=== PATIENT | male | born 1985 | race Caucasian/White ===

== ENCOUNTER 2017-12-31 12:19 | Emergency (ER) | payer OTHER ==
--- NOTE | 2017-12-31 13:24 | EDM.PDOC ---
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 He reports he felt a pop and has since had pain 8-9/10 to his low back. He tried use of ibuprofen, ice without help. He reports history of gout. Lower Back Pain Score (Numeric/FACES): 4 - Related Data Allergies Allergy/AdvReac Type Severity Reaction Status Date / Time No Known Allergies Allergy Verified 12/31/17 12:48 Home Meds: Home Meds Ibuprofen [Motrin] 600 mg PO 12/31/17 [History] Past Medical History Respiratory History: Reports: Asthma Musculoskeletal History: Reports: Gout, Other (See Below) Other Musculoskeletal History: Yesterday move wrong and has had pain since has tried ice and motrin states hard time moving Social & Family History - Tobacco Use Years of Tobacco use: 10 - Caffeine Use Caffeine Use: Reports: None ED ROS GENERAL - Review of Systems Review Of Systems: See Below Constitutional: Reports: No Symptoms HEENT: Reports: No Symptoms Respiratory: Reports: No Symptoms Cardiovascular: Reports: No Symptoms Endocrine: Reports: No Symptoms GI/Abdominal: Reports: No Symptoms Musculoskeletal: Reports: Other (Low back pain without radiation. ) Skin: Reports: No Symptoms Neurological: Reports: Other (no loss of sensation to genitals or difficulty with bladder/bowel function. ). 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 Exam Limited By: No Limitations General Appearance: Alert, WD/WN, Mild Distress Eye Exam: Bilateral Eye: EOMI, PERRL Throat/Mouth: Normal Inspection, Normal Lips, Normal Gums, Normal Oropharynx, Normal Voice, No Airway Compromise Head: Atraumatic, Normocephalic Neck: Normal Inspection, Supple, Non-Tender, Full Range of Motion. No: Lymphadenopathy (R), Lymphadenopathy (L) Respiratory/Chest: No Respiratory Distress, Lungs Clear, Normal Breath Sounds, No Accessory Muscle Use, Chest Non-Tender Cardiovascular: Normal Peripheral Pulses, Regular Rate, Rhythm, No Edema, No Murmur, No Rub GI/Abdominal: Normal Bowel Sounds, Soft, Non-Tender Back Exam: Decreased Range of Motion, Muscle Spasm. No: CVA Tenderness (R), CVA Tenderness (L), Paraspinal Tenderness, Vertebral Tenderness Extremities: Normal Inspection, Non-Tender, No Pedal Edema, Normal Capillary Refill Neurological: Alert, Normal Mood/Affect, Normal Dorsiflexion, Normal Reflexes, Oriented x 3, Other (negative straight leg raise). No: Tremor, Saddle Anesthesia, Difficulty Walking DTR - Lower Extremities: 2+: Knee (R), Knee (L) Psychiatric: Normal Affect, Normal Mood Skin Exam: Warm, Dry, Intact, Normal Color, No Rash Lymphatic: No Adenopathy Course - Vital Signs Last Recorded V/S: Last Vital Signs Temp 36.3 C 12/31/17 12:45 Pulse 92 12/31/17 12:45 Resp 18 12/31/17 12:45 BP 123/70 12/31/17 12:45 Pulse Ox - Orders/Labs/Meds Orders: Active Orders 24 hr Category Date Time Status Lumbar Spine 2 or 3V [CR] Stat Exams 12/31/17 13:18 Taken - Radiology Interpretation Free Text/Narrative:: X-ray reviewed and wet read, no acute findings. Images reviewed with patient, he is in agreement with plan. Departure - Departure Time of Disposition: 14:16 Disposition: Home, Self-Care 01 Condition: Good Clinical Impression: Low back strain - Discharge Information *PRESCRIPTION DRUG MONITORING PROGRAM REVIEWED*: No *COPY OF PRESCRIPTION DRUG MONITORING REPORT IN PATIENT GAGE: No Instructions: Low Back Sprain Referrals: Hong Walters PA [Primary Care Provider] - Forms: ED Department Discharge Additional Instructions: You have been evaluated and treated for low back strain. Take toradol 10 mg by mouth as directed for pain. if pain persists past 10 days you can then try diclofenac tablets. Take prednisone as directed for pain/inflammation. Take acetaminophen as needed for pain. You may use cyclobenzaprine 10mg by mouth three times a day as needed for muscle spasm. Use of topical gel and lidocaine patches can also help. Follow up with your primary provider in 3 to 7 days for a recheck and need for physical therapy referral. Return for worsening, issues or concern. - My Orders Last 24 Hours: My Active Orders 12/31/17 13:18 Lumbar Spine 2 or 3V [CR] Stat - Assessment/Plan Last 24 Hours: My Active Orders 12/31/17 13:18 Lumbar Spine 2 or 3V [CR] Stat Assessment:: Low back strain Plan: Patient evaluated and treated for low back strain. Take toradol 10 mg by mouth as directed for pain. if pain persists past 10 days you can then try diclofenac tablets. Take prednisone as directed for pain/inflammation. Take acetaminophen as needed for pain. He can use cyclobenzaprine 10mg by mouth three times a day as needed for muscle spasm. Use of topical gel and lidocaine patches can also help. Follow up with primary provider in 3 to 7 days for a recheck and need for physical therapy referral. Return for worsening, issues or concern.
--- NOTE | 2018-01-02 08:58 | CR ---
Lumbar Spine 2 or 3V CLINICAL HISTORY: Back pain FINDINGS: The vertebral body heights are maintained. There is disc space narrowing at L5-S1 with acco mpanied spondylosis. There is some sclerosis in the L4-5 facets. Patient has a mild levoscoliosis. Th ere is some straightening of the lumbar spine which may indicate spasm. IMPRESSION: Degenerative disc changes and facet osteoarthropathy in the low lumbar spine No fracture or subluxation Slight levoscoliosis and straining lumbar spine may indicate spasm
== END 2017-12-31 14:29 | disposition home or self-care (01) ==
LOC: JP.ED 12:19
DX: S39.012A Strain of muscle, fascia and tendon of lower back, initial encounter (principal); X50.9XXA Other and unspecified overexertion or strenuous movements or postures, initial encounter
CPT/HCPCS: 72100; 72100-26; 99284

== ENCOUNTER 2021-03-23 10:14 | Emergency (ER) | payer OTHER ==
--- NOTE | 2021-03-23 10:49 | EDM.PDOC ---
ED HPI GENERAL MEDICAL PROBLEM - General Chief Complaint: Respiratory Problem Stated Complaint: SOB Time Seen by Provider: 03/23/21 10:30 Source of Information: Reports: Patient History Limitations: Reports: No Limitations - History of Present Illness INITIAL COMMENTS - FREE TEXT/NARRATIVE: 35-year-old male with a long history of asthma, did not get vaccinated and tested positive for Covid about 10 days ago. Since that time he has had persistent coughing, he has been increasing his use of albuterol and is having trouble breathing on a daily basis. He finally could not take it anymore and came in to be checked, he does have persistent coughing. No fevers or chills. Onset: Gradual Duration: Day(s): (10 days of symptoms) Associated Symptoms: Reports: Cough, Malaise, Shortness of Breath - Related Data Allergies Allergy/AdvReac Type Severity Reaction Status Date / Time No Known Allergies Allergy Verified 03/23/21 10:26 Home Meds: Home Meds Ibuprofen [Motrin] 600 mg PO ASDIRECTED PRN 12/31/17 [History] Albuterol Sulfate [Albuterol Sulfate Hfa] 2 puff INH ASDIRECTED PRN 03/23/21 [History] Budesonide/Formoterol Fumarate [Symbicort 160-4.5 Mcg Inhaler] 1 puff INH DAILY 03/23/21 [History] Past Medical History Respiratory History: Reports: Asthma Musculoskeletal History: Reports: Gout, Other (See Below) Other Musculoskeletal History: Yesterday move wrong and has had pain since has tried ice and motrin states hard time moving Social & Family History - Tobacco Use Tobacco Use Status *Q: Never Tobacco User - Caffeine Use Caffeine Use: Reports: None - Recreational Drug Use Recreational Drug Use: No ED ROS GENERAL - Review of Systems Review Of Systems: See Below Constitutional: Reports: Malaise. Denies: Fever, Chills HEENT: Reports: No Symptoms Respiratory: Reports: Shortness of Breath, Cough. Denies: Sputum Cardiovascular: Reports: Chest Pain (Some pain with coughing) GI/Abdominal: Reports: No Symptoms Neurological: Reports: No Symptoms Psychiatric: Reports: No Symptoms ED EXAM, GENERAL - Physical Exam Exam: See Below Exam Limited By: No Limitations General Appearance: Alert, No Apparent Distress (Looks uncomfortable because of persistent coughing) Eye Exam: Bilateral Eye: Normal Inspection Respiratory/Chest: No Respiratory Distress, Other (Diffuse decreased breath sounds and a few scattered expiratory wheezes) Cardiovascular: Regular Rate, Rhythm. No: Tachycardia Extremities: Normal Inspection Neurological: Alert, Oriented Psychiatric: Normal Affect, Normal Mood Course - Vital Signs Last Recorded V/S: Last Vital Signs Temp 97.5 F 03/23/21 10:25 Pulse 92 03/23/21 10:25 Resp 18 03/23/21 10:25 BP 132/88 03/23/21 10:25 Pulse Ox 95 03/23/21 10:25 - Orders/Labs/Meds Meds: Medications Discontinued Medications Generic Name Dose Route Start Last Admin Trade Name Freq PRN Reason Stop Dose Admin Albuterol/Ipratropium 3 ml 03/23/21 11:00 03/23/21 11:12 Albuterol/Ipratropium 3.0-0.5 Mg/3 Ml Neb Soln NEB 03/23/21 11:01 3 ml ONETIME ONE Administration Methylprednisolone Sodium Succinate 125 mg 03/23/21 11:00 03/23/21 12:19 Methylprednisolone Sodium Succinate 125 Mg/2 Ml Sdv IVPUSH 03/23/21 11:01 Not Given ONETIME ONE Methylprednisolone Sodium Succinate 125 mg 03/23/21 11:11 03/23/21 11:12 Methylprednisolone Sodium Succinate 125 Mg/2 Ml Sdv IM 03/23/21 11:12 125 mg ONETIME ONE Administration - Re-Assessments/Exams Free Text/Narrative Re-Assessment/Exam: 03/23/21 10:49 Two-view chest x-ray was done. 03/23/21 11:02 2 view chest x-ray does show scattered spots of inflammatory reaction typical for Covid. Patient was given 125 mg of IM Solu-Medrol and will be initiated on a Medrol Dosepak. He was also given a DuoNeb and will be given a course of Zithromax. There really is nothing much more to offer at this time and he needs to return if he is worsening despite treatment. 03/23/21 12:32 Patient did admit to some pretty good subjective symptom relief from the DuoNeb. Departure - Departure Time of Disposition: 11:26 Disposition: Home, Self-Care 01 Clinical Impression: Pneumonia due to COVID-19 virus - Discharge Information Instructions: COVID-19 Referrals: PCP,None [Primary Care Provider] - Forms: ED Department Discharge Care Plan Goals: Continue your inhaler as needed, take Medrol Dosepak as prescribed as well as the Zithromax. Increase activity as tolerated and return if worsening despite treatment. Sepsis Event Note (ED) - Evaluation Sepsis Screening Result: No Definite Risk - Focused Exam Vital Signs: Vital Signs Temp Pulse Resp BP Pulse Ox 03/23/21 10:25 97.5 F 92 18 132/88 95
[2021-03-23] MEDS ORDERED: Albuterol/Ipratropium 3.0-0.5 MG/3 ML Neb Soln NEB ONE (11:00)
[2021-03-23] MEDS: methylPREDNISolone Sodium Succinate 125 MG/2 ML SDV IVPUSH ONE ×2 (11:11→12:19)
[2021-03-23] MEDS ORDERED: methylPREDNISolone Sodium Succinate 125 MG/2 ML SDV IM ONE (11:11)
--- NOTE | 2021-03-23 11:18 | CR ---
CHEST: 2 view CLINICAL HISTORY:Dyspnea COMPARISON:None FINDINGS: Heart size and pulmonary vascularity are normal. There is some generalized increase in lung markings in the right upper lobe and in the perihilar regions bilaterally. Impression: Patchy infiltrate-like densities in the right lung and perihilar regions. This is suggestive of pneumonitis
== END 2021-03-23 11:36 | disposition home or self-care (01) ==
LOC: JP.ED 10:14
DX: U07.1 COVID-19 (principal); J12.82 Pneumonia due to coronavirus disease 2019; J45.909 Unspecified asthma, uncomplicated; M10.9 Gout, unspecified
CPT/HCPCS: 71046; 94640; 96372; 99285; J2930; J7620-GY